=== PATIENT | male | born 1965 | race Caucasian/White ===

== ENCOUNTER 2019-03-27 17:22 | Emergency (ER) | payer BC ==
[2019-03-27] MEDS ORDERED: Lidocaine 1% MPF ** 5 ML VIAL INJ ONE (20:12)
--- NOTE | 2019-03-27 20:59 | UC ---
Laceration HPI - HPI Summary HPI Summary: 53-year-old male presents for laceration to his left palmar hand. States he accidentally pinched the palm of his hand between 2 pieces of metal while hooking up a wagon. States bleeding was controlled with direct pressure prior to arrival. Reports full range of motion to all fingers. Last tetanus was within 5 years. Denies any numbness or tingling. - History Of Current Complaint Chief Complaint: UCLaceration Stated Complaint: LEFT HAND LACERATION Time Seen by Provider: 03/27/19 19:38 Hx Obtained From: Patient Pain Intensity: 1 - Allergies/Home Medications Allergies/Adverse Reactions: Allergies Allergy/AdvReac Type Severity Reaction Status Date / Time No Known Allergies Allergy Verified 03/27/19 19:15 Home Medications: Home Medications hydroCHLOROthiazide [Hydrochlorothiazide] 12.5 mg PO DAILY 03/27/19 [History Confirmed 03/27/19] PMH/Surg Hx/FS Hx/Imm Hx Cardiovascular History: Hypertension - Surgical History Surgical History: Yes Surgery Procedure, Year, and Place: Gastric bypass 2009 - Family History Known Family History: Positive: Non-Contributory - Social History Occupation: Employed Full-time Lives: With Family Alcohol Use: Rare Substance Use Type: None Smoking Status (MU): Never Smoked Tobacco Review of Systems All Other Systems Reviewed And Are Negative: Yes Skin: Positive: Other - See HPI Respiratory: Positive: Negative Cardiovascular: Positive: Negative Gastrointestinal: Positive: Negative Genitourinary: Positive: Negative Motor: Negative: Weakness Neurovascular: Negative: Decreased Sensation Musculoskeletal: Negative: Decreased ROM Neurological: Positive: Negative Is Patient Immunocompromised?: No Physical Exam - Summary Physical Exam Summary: GENERAL APPEARANCE: Well developed, well nourished, alert and cooperative, and appears to be in no acute distress. CARDIAC: Normal S1 and S2. No S3, S4 or murmurs. Rhythm is regular. There is no peripheral edema, cyanosis or pallor. Extremities are warm and well perfused. Capillary refill is less than 2 seconds. Peripheral pulses intact. LUNGS: Clear to auscultation without rales, rhonchi, wheezing or diminished breath sounds. ABDOMEN: Positive bowel sounds. Soft, nondistended, nontender. No guarding or rebound. No masses or hepatosplenomegally. MUSKULOSKELETAL: ROM intact to the left thumb. Circulation and sensation intact. No joint erythema or tenderness. Normal muscular development. Normal gait. SKIN: Skin normal color, texture and turgor. Two small superficial linear lacerations to the palmar left hand over the thenar prominence with bleeding controlled. Triage Information Reviewed: Yes Vital Signs: Initial Vital Signs Temp 98.4 F 03/27/19 19:09 Pulse 84 03/27/19 19:09 Resp 16 03/27/19 19:09 BP 125/69 03/27/19 19:09 Pulse Ox 97 03/27/19 19:09 Vital Signs Reviewed: Yes Images Hands: 1 - Superficial linear laceration 2 - Superficial linear laceration Procedures - Procedure Summary Procedure Summary: Procedure note: Laceration repair left hand Informed consent was obtained before procedure started and the appropriate timeout was taken. The wound was copiously irrigated by the RN prior to repair. The area was prepped with Betadine. Local anesthesia was achieved using 3 ml of lidocaine 1% without epinephrine. The wound margins to laceration #1 were brought into good alignment and 3 interrupted sutures were placed using 4-0 Ethilon. Total length of wound after repair was 1.5 cm. Attention was then turned to laceration #2 and a single interrupted suture was placed using 4-0 Ethilon. Total length of wound after repair was 0.5 cm. at the end of the procedure patient had a vasovagal episode that lasted approximately 45 seconds to 1 minute. He recovered quickly and was neurologically intact. He was assisted to the exam table for recovery and provided a drink some fluid. Vital signs were stable and patient remained neurologically intact. Estimated blood loss was minimal. A dressing was applied to the area when necessary. Anticipatory guidance, as well as standard post-procedure care was discussed with patient. Return precautions are given. The patient tolerated the procedure well without complications. Patient is to follow up in and 14 days for suture removal and evaluation of the laceration. Laceration Course/Dx - Course/Dx Course Of Treatment: 53-year-old male presents for laceration to his left palmar hand. States he accidentally pinched the palm of his hand between 2 pieces of metal while hooking up a wagon. States bleeding was controlled with direct pressure prior to arrival. Reports full range of motion to all fingers. Last tetanus was within 5 years. Denies any numbness or tingling. Afebrile. Vital signs stable. Patient had 2 small superficial linear lacerations to the palmar left hand over the thenar prominence with bleeding controlled. ROM intact to the left thumb. Circulation and sensation intact. After obtaining informed consent and an appropriate time out was performed prior to wound repair. Both lacerations were closed with a total of 4 interrupted sutures using 4-0 Ethilon. Patient did have a brief vasovagal episode following the wound repair that lasted approximately 45 seconds 20 minutes. He had a very quick recovery, vital signs were stable, and he was neurologically intact. He is to return in 10-14 days for suture removal. Anticipatory guidance, wound care, and warning symptoms were reviewed with the patient. Verbalizes understanding and agrees with plan of care. Patient was discharged to home via private vehicle with his family member driving. - Differential Dx - Laceration/Wound Differental Diagnoses: Laceration, Tendon Laceration - Diagnosis Provider Diagnosis: Laceration of left hand Discharge ED - Sign-Out/Discharge Documenting (check all that apply): Patient Departure All imaging exams completed and their final reports reviewed: No Studies - Discharge Plan Condition: Stable Disposition: HOME Patient Education Materials: Care For Your Stitches (ED), Laceration (ED) Referrals: Tashi uA MD [Primary Care Provider] - Additional Instructions: Leave the dressing that was applied in the clinic in place until tomorrow. Be sure to keep it clean and dry. Starting tomorrow, you may remove the dressing and shower and wash hands as normal. Do not submerge the hand under water to prevent infection. Clean the wound with a mild soap and water at least twice a day. Apply some antibiotic ointment and cover with a bandage. This should be changed at least twice a day or any time the dressing becomes wet or soiled. Use acetaminophen (Tylenol) or ibuprofen (Advil, Motrin) according to directions as needed for pain. Sutures will need to be removed in 10-14 days. You may return here or with your primary care provider to have this done. Watch for signs of infection including fever greater than 100.5 F, severe pain not managed with pain medication, redness that spreads, swelling of the hand/ fingers, or pus draining from the wound. Seek immediate medical attention should any of these occur. - Billing Disposition and Condition Condition: STABLE Disposition: Home
[2019-03-27 21:14] VITALS: BP 134/83
== END 2019-03-27 21:11 | disposition home or self-care (01) ==
LOC: UCCORT 17:22
DX: S61.412A Laceration without foreign body of left hand, initial encounter (principal); I10 Essential (primary) hypertension; W45.8XXA Other foreign body or object entering through skin, initial encounter; Y93.89 Activity, other specified; Y92.9 Unspecified place or not applicable; Z79.899 Other long term (current) drug therapy
CPT/HCPCS: 12001; 99212; G0463